=== PATIENT | male | born 1970 | race Caucasian/White ===

== ENCOUNTER → 2019-08-16 | Outpatient (CLI) | payer OTHER | LOC: SJCVCIMAG 07:58 | DX: S06.9X6S Unspecified intracranial injury with loss of consciousness greater than 24 hours without return to pre-existing conscious level with patient surviving, sequela (principal); R20.9 Unspecified disturbances of skin sensation; R20.2 Paresthesia of skin; I10 Essential (primary) hypertension; K75.9 Inflammatory liver disease, unspecified; F17.200 Nicotine dependence, unspecified, uncomplicated; X58.XXXS Exposure to other specified factors, sequela ==